=== PATIENT | female | born 1995 | race Caucasian/White ===

== ENCOUNTER 2018-10-11 16:59 | Inpatient (IN) | payer BC ==
[2018-10-11] MEDS ORDERED: Ondansetron 4 MG/2 ML SDV IVPUSH PRN (17:28)
[2018-10-11] MEDS ORDERED: Tranexamic Acid 1,000 MG in Sodium Chloride 0.9% 100 ML IV PRN (17:28)
[2018-10-11] MEDS ORDERED: Lidocaine 1% 50 ML MDV INJECT PRN (17:28)
[2018-10-11] MEDS ORDERED: Water For Irrigation,Sterile 1,000 ML Container IRR PRN (17:28)
[2018-10-11] MEDS ORDERED: Sodium Chloride 0.9% 10 ML Syringe FLUSH PRN (17:28)
[2018-10-11] MEDS ORDERED: Sodium Chloride 0.9% 2.5 ML Syringe FLUSH PRN (17:28)
[2018-10-11] MEDS ORDERED: Carboprost Tromethamine 250 MCG/1 ML Amp IM PRN (17:28)
[2018-10-11] MEDS ORDERED: Methylergonovine 0.2 MG/1 ML Amp IM PRN (17:28)
[2018-10-11] MEDS ORDERED: Misoprostol 200 MCG Tab PO PRN (17:28)
[2018-10-11] MEDS ORDERED: Sodium Chloride 0.9% 10 ML SDV IV PRN (17:28)
[2018-10-11] MEDS ORDERED: Terbutaline 1 MG/ML SDV SUBCUT PRN (17:28)
[2018-10-11] MEDS ORDERED: Oxytocin/0.9 % Sodium Chloride 30 UNIT/500 ML BAG IV SCH ×2 (17:30)
[2018-10-11] MEDS: Lactated Ringers 1,000 ML IV SCH (17:45)
[2018-10-11] MEDS ORDERED: Misoprostol 25 MCG (1/4 of 100 MCG) Tab VAG PRN (18:00)
[2018-10-11] MEDS: Misoprostol 25 MCG (1/4 of 100 MCG) Tab VAG PRN (22:20)
[2018-10-12] MEDS: Butorphanol 1 MG/ML SDV IVPUSH PRN ×3 (00:51→04:50)
[2018-10-12] MEDS: Misoprostol 25 MCG (1/4 of 100 MCG) Tab VAG PRN (02:43)
--- NOTE | 2018-10-12 05:21 | PCM.PREANE ---
Preanesthetic Assessment - Anesthesia/Transfusion/Family Hx Anesthesia History: Prior Anesthesia Without Reaction Family History of Anesthesia Reaction: No Transfusion History: No Prior Transfusion(s) - Review of Systems General: No Symptoms Pulmonary: No Symptoms Cardiovascular: No Symptoms Gastrointestinal: No Symptoms Neurological: No Symptoms Other: Reports: None - Physical Assessment Height: 5 ft 1 in Weight: 73.936 kg ASA Class: 2 Mental Status: Alert & Oriented x3 Airway Class: Mallampati = 2 Dentition: Reports: Normal Dentition Thyro-Mental Finger Breadths: 3 Mouth Opening Finger Breadths: 3 ROM/Head Extension: Full Lungs: Clear to Auscultation, Normal Respiratory Effort Cardiovascular: Regular Rate, Regular Rhythm - Lab Values: Laboratory Last Values WBC 11.82 K/uL (4.0-11.0) H 10/11/18 17:48 RBC 4.48 M/uL (4.30-5.90) 10/11/18 17:48 Hgb 12.9 g/dL (12.0-16.0) 10/11/18 17:48 Hct 39.3 % (36.0-46.0) 10/11/18 17:48 MCV 87.7 fL (80.0-98.0) 10/11/18 17:48 MCH 28.8 pg (27.0-32.0) 10/11/18 17:48 MCHC 32.8 g/dL (31.0-37.0) 10/11/18 17:48 RDW Std Deviation 47.0 fl (28.0-62.0) 10/11/18 17:48 RDW Coeff of Jerry 15 % (11.0-15.0) 10/11/18 17:48 Plt Count 188 K/uL (150-400) 10/11/18 17:48 MPV 12.30 fL (7.40-12.00) H 10/11/18 17:48 Nucleated RBC % 0.0 /100WBC 10/11/18 17:48 Nucleated RBCs # 0 K/uL 10/11/18 17:48 Blood Type A POSITIVE 10/11/18 17:48 Antibody Screen NEGATIVE 10/11/18 17:48 - Allergies Allergies/Adverse Reactions: Allergies Allergy/AdvReac Type Severity Reaction Status Date / Time amoxicillin Allergy Swelling Verified 08/30/18 03:10 - Acknowledgements Anesthesia Type Planned: Epidural Pt an Appropriate Candidate for the Planned Anesthesia: Yes Alternatives and Risks of Anesthesia Discussed w Pt/Guardian: Yes Pt/Guardian Understands and Agrees with Anesthesia Plan: Yes PreAnesthesia Questionnaire - Past Health History Medical/Surgical History: Denies Medical/Surgical History HEENT History: Reports: None Cardiovascular History: Reports: None Respiratory History: Reports: None Gastrointestinal History: Reports: GERD Genitourinary History: Reports: None TENNIS PLAYER History: Reports: : 1 Para: 0 LMP (Approximate): Musculoskeletal History: Reports: None Neurological History: Reports: None Psychiatric History: Reports: None Endocrine/Metabolic History: Reports: None Hematologic History: Reports: None Immunologic History: Reports: None Oncologic (Cancer) History: Reports: None Dermatologic History: Reports: None - Infectious Disease History Infectious Disease History: Reports: None - HOME MEDS Home Medications: Home Meds Ferrous Sulfate [Iron] 325 mg PO DAILY 10/11/18 [History] PNV95/Ferrous Fumarate/FA [ Tablet] 1 each PO DAILY 10/11/18 [History] - CURRENT (IN HOUSE) MEDS Current Meds: Current Medications Butorphanol Tartrate (Stadol) 1 mg IVPUSH Q1H PRN PRN Reason: Pain Last Admin: 10/12/18 04:50 Dose: 1 mg Carboprost Tromethamine (Hemabate Ds) 250 mcg IM ASDIRECTED PRN PRN Reason: Post Hemorrhage Lactated Ringer's (Ringers, Lactated) 1,000 mls @ 150 mls/hr IV ASDIRECTED LUCIA Last Admin: 10/11/18 17:45 Dose: 150 mls/hr Oxytocin/Sodium Chloride (Oxytocin 30 Unit/500 Ml-Ns) 30 unit in 500 mls @ 999 mls/hr IV TITRATE LUCIA Oxytocin/Sodium Chloride (Oxytocin 30 Unit/500 Ml-Ns) 30 unit in 500 mls @ 2 mls/hr IV TITRATE LUCIA; Protocol Tranexamic Acid 1,000 mg/ (Sodium Chloride) 110 mls @ 660 mls/hr IV ONETIME PRN PRN Reason: Bleeding Lidocaine HCl (Xylocaine 1%) 50 ml INJECT ONETIME PRN PRN Reason: Laceration repair Methylergonovine Maleate (Methergine) 0.2 mg IM ASDIRECTED PRN PRN Reason: Post Hemorrhage Misoprostol (Cytotec) 200 mcg PO ONETIME PRN PRN Reason: Post Hemorrhage Misoprostol (Cytotec) 25 mcg VAG ONETIME PRN PRN Reason: Cervical Ripening Last Admin: 10/11/18 18:03 Dose: 25 mcg Misoprostol (Cytotec) 25 mcg VAG Q4H PRN PRN Reason: Cervical Ripening Last Admin: 10/12/18 02:43 Dose: 25 mcg Ondansetron HCl (Zofran) 4 mg IVPUSH Q6H PRN PRN Reason: Nausea/Vomiting Sodium Chloride (Saline Flush) 10 ml FLUSH ASDIRECTED PRN PRN Reason: Keep Vein Open Sodium Chloride (Saline Flush) 2.5 ml FLUSH ASDIRECTED PRN PRN Reason: Keep Vein Open Sodium Chloride (Normal Saline) 10 ml IV ASDIRECTED PRN PRN Reason: IV Use Sterile Water (Sterile Water For Irrigation) 1,000 ml IRR ASDIRECTED PRN PRN Reason: delivery Terbutaline Sulfate (Brethine) 0.25 mg SUBCUT ASDIRECTED PRN PRN Reason: Tacysystole
[2018-10-12] MEDS ORDERED: Oxytocin/0.9 % Sodium Chloride 30 UNIT/500 ML BAG IV SCH (07:15)
[2018-10-12] MEDS ORDERED: Bupivacaine 0.5% 10 ML SDV ONE (10:16)
[2018-10-12] MEDS: Lactated Ringers 1,000 ML IV SCH (12:07)
[2018-10-12] MEDS ORDERED: Ropivacaine HCl/PF 100 ML ONE (13:57)
[2018-10-12] MEDS ORDERED: fentaNYL 100 MCG/2 ML SDV ONE (13:57)
--- NOTE | 2018-10-12 15:03 | PCM.PRNOTE ---
- Free Text/Narrative Note: Anes Procedure NOte Patient reports incomplete analgesia on right side. This has been bolused during the day, and once again at 1415. I bolused with 5 cc pump solution. A new epidural bag was also placed at this time. The new epidural solution is 100 cc of 0.2% ropivicaine with 1 mcg/cc fentanyl added. However, the patient is not satisfied with her analgesia, and I have offered to replace her epidural catheter, and she wishes to proceed. Prio epidural easily removed with ease and complete with tip intact. Sterile prop to lumbar area with chloraprep. Steril fenestrated drape placed. Under sterile technique and local anesthesia, the epidural space was achieved at L2-L3, single attempt with ease. Cath threaded 4 cm wtih ease, and secured at 10 cm at skin. Sterile clear adhesive dressing placed. Test dose at 1447 3cc 1.5% lido with epi negative. Loading dose at 475842 cc 0.25 % bupivicaine plain in slow incrementatl doses, Pump restarted Patient reports excellent analgesia Time with patient [id number] Melo Rodriguez CRNA
[2018-10-12] MEDS ORDERED: Bisacodyl 10 MG Supp RECTAL PRN (21:03)
[2018-10-12] MEDS ORDERED: Ibuprofen 400 MG Tab PO PRN (21:03)
[2018-10-12] MEDS ORDERED: Aluminum Hydroxide/Magnesium Hydroxide/Simethicone Susp 30 ML Cup PO PRN (21:03)
[2018-10-12] MEDS ORDERED: oxyCODONE 5 MG Tab PO PRN (21:03)
[2018-10-12] MEDS ORDERED: Acetaminophen 500 MG Tab PO PRN ×2 (21:03)
--- NOTE | 2018-10-12 21:11 | PCM.OPNOTE ---
- General Post-Op/Procedure Note Date of Surgery/Procedure: 10/12/18 Operative Procedure(s): /2nd MLL repaired Findings: Viable female APGARs 9, 10 weight 3120 gm. Spontaneous delivery intact placenta with 3V cord Pre Op Diagnosis: 41 week IUP. IOL for past due Post-Op Diagnosis: Same Anesthesia Technique: Epidural Primary Surgeon: Pamela Stuart EBL in mLs: 400 Complications: none known Condition: Good Free Text/Narrative:: Dictation [id number]
[2018-10-12] MEDS: Lanolin 100% Cream 7 GM Tube TOP PRN (21:21)
[2018-10-12] MEDS: Ibuprofen 800 MG Tab PO PRN (21:22)
[2018-10-12] MEDS: Witch Hazel Medicated Pads 40/Jar TOP PRN (21:22)
[2018-10-12] MEDS: Benzocaine/Menthol 20%-0.5% Spray 78 GM Cannister TOP PRN (21:23)
--- NOTE | 2018-10-13 01:37 | OR ---
SURGEON: Pamela Stuart M.D. DATE OF PROCEDURE: 10/12/2018 PREOPERATIVE DIAGNOSES: 1. 41 week intrauterine . 2. Induction of labor for past due . POSTOPERATIVE DIAGNOSES: 1. 41 week intrauterine . 2. Induction of labor for past due . PROCEDURE: Spontaneous vaginal delivery, second-degree midline laceration repair. PRIMARY SURGEON: Pamela Stuart M.D. ANESTHESIA: Epidural. ESTIMATED BLOOD LOSS: 400 mL. COMPLICATIONS: None known. FINDINGS: Viable female Apgars 9 at 1 minute, 10 at 5 minutes. Weight of 3120 g. Spontaneous delivery, intact placenta, 3-vessel cord. DISPOSITION: to nursery, mom in LDRP. PROCEDURE DETAILS: Altagracia is a 22-year-old, G1, P0, at 41 weeks' gestational age, who presented on the evening of 10/11/2018 for scheduled induction of labor for past due . She initially underwent Cytotec ripening, responded nicely to this, progressed from 2 cm to 3 cm, 80% effaced, -2 station. She had been transitioned to Pitocin induction. heart tones 140s with variability. She is group B beta strep negative. The following morning, she underwent amniotomy shortly before 8 a.m. and was had clear fluid. Within the next hour with monitoring was not able to be easily follow the contractions, therefore, an IUPC was placed. The patient had received epidural in the real estate office supervisor of 10/12/2018. Shortly afternoon, the patient was found to be 4 to 5 cm, 90% effaced, and -1 station. Throughout the afternoon, she started having increasing discomfort despite her epidural. Ultimately, she underwent replacement of her epidural, became much more comfortable. Shortly after 5 p.m., she was found to be 900% effaced, 0 station. Continued to progress. Shortly after 7 p.m., was found to be complete 100% effaced, +2 station, began pushing efforts, pushed for approximately an hour. At that time was able to push to a +3 station, was called for delivery. Upon my arrival, the patient was placed in modified dorsal lithotomy position, was prepped and draped in the usual aseptic manner. Continued with pushing efforts, was able to push to +5 station, deliver the infant's head atraumatically, spontaneously, followed by anterior shoulder, posterior shoulder, and remaining body without difficulty. The 's oropharynx and nares bulb suctioned. Cord was handed off to her mother with attending nursing staff. After delay, cord was clamped x2 and cut. Cord arterial, cord venous, cord blood sampling obtained. Light pressure was applied. The placenta was delivered spontaneously intact. Vigorous fundal uterine massage was applied while 30 units of Pitocin was delivered in 500 mL IV fluid. Upon inspection of cervix, vaginal sidewalls, and perineum, there was found to be a first-degree right periurethral laceration was repaired using 3-0 Vicryl in continuous running fashion. There was also a second-degree midline laceration was repaired using 3-0 Vicryl in the usual fashion. Hemostasis appeared evident. Uterus is remaining firm. Sponge count, instrument, needle count was correct. The patient will remain in LDRP, infant to [facility]. DILSHAD / FLORI /[id number]
[2018-10-13] MEDS: Ibuprofen 800 MG Tab PO PRN (07:39)
[2018-10-13] MEDS: Docusate Sodium 100 MG Cap PO PRN (07:41)
--- NOTE | 2018-10-13 08:27 | PCM.PNPP ---
- General Info Date of Service: 10/13/18 Functional Status: Reports: Pain Controlled, Tolerating Diet, Ambulating, Urinating - Review of Systems General: Reports: Fatigue. Denies: Fever, Weakness Pulmonary: Denies: Shortness of Breath Cardiovascular: Denies: Chest Pain, Palpitations, Lightheadedness Gastrointestinal: Denies: Abdominal Pain, Nausea, Vomiting Genitourinary: Denies: Flank Pain Musculoskeletal: Reports: No Symptoms Skin: Reports: No Symptoms Neurological: Reports: No Symptoms Psychiatric: Reports: No Symptoms - Patient Data Vital Signs - Most Recent: Last Vital Signs Temp 36.2 C 10/13/18 07:19 Pulse 79 10/13/18 07:19 Resp 17 10/13/18 07:19 BP 104/66 10/13/18 07:19 Pulse Ox 96 10/13/18 07:19 Weight - Most Recent: 73.936 kg Lab Results - Last 24 Hours: Laboratory Results - last 24 hr 10/12/18 10/13/18 Range/Units 20:34 06:15 Hgb 10.8 L (12.0-16.0) g/dL Hct 33.6 L (36.0-46.0) % Cord ABG pH 7.288 (7.18-7.38) Cord ABG Base Excess -7 (-10--2) Cord VBG pH 7.384 (7.25-7.45) Cord VBG Base Excess -6 (-10--2) Med Orders - Current: Current Medications Acetaminophen (Tylenol Extra Strength) 500 mg PO Q4H PRN PRN Reason: Pain Acetaminophen (Tylenol Extra Strength) 1,000 mg PO Q4H PRN PRN Reason: Pain Al Hydroxide/Mg Hydroxide (Mag-Al Plus) 30 ml PO Q8H PRN PRN Reason: Heartburn Benzocaine/Menthol (Dermoplast Pain Relief 20%-0.5% [place]) 78 gm TOP ASDIRECTED PRN PRN Reason: Perineal Comfort Measure Last Admin: 10/12/18 21:23 Dose: 1 applic Bisacodyl (Dulcolax) 10 mg RECTAL ONETIME PRN PRN Reason: Constipation Carboprost Tromethamine (Hemabate Ds) 250 mcg IM ASDIRECTED PRN PRN Reason: Post Hemorrhage Docusate Sodium (Colace) 100 mg PO BID PRN PRN Reason: Constipation Last Admin: 10/13/18 07:41 Dose: 100 mg Emollient Ointment (Lansinoh Hpa) 0 gm TOP ASDIRECTED PRN PRN Reason: Sore Nipples Last Admin: 10/12/18 21:21 Dose: 1 applic Lactated Ringer's (Ringers, Lactated) 1,000 mls @ 150 mls/hr IV ASDIRECTED LUCIA Last Admin: 10/12/18 12:07 Dose: 150 mls/hr Oxytocin/Sodium Chloride (Oxytocin 30 Unit/500 Ml-Ns) 30 unit in 500 mls @ 999 mls/hr IV TITRATE LUCIA Oxytocin/Sodium Chloride (Oxytocin 30 Unit/500 Ml-Ns) 30 unit in 500 mls @ 2 mls/hr IV TITRATE LUCIA; Protocol Tranexamic Acid 1,000 mg/ (Sodium Chloride) 110 mls @ 660 mls/hr IV ONETIME PRN PRN Reason: Bleeding Oxytocin/Sodium Chloride (Oxytocin 30 Unit/500 Ml-Ns) 30 unit in 500 mls @ 2 mls/hr IV TITRATE LUCIA; Protocol Last Titration: 10/12/18 15:03 Dose: 6 munits/min, 6 mls/hr Ibuprofen (Motrin) 400 mg PO Q4H PRN PRN Reason: Pain Ibuprofen (Motrin) 800 mg PO Q6H PRN PRN Reason: Pain Last Admin: 10/13/18 07:39 Dose: 800 mg Methylergonovine Maleate (Methergine) 0.2 mg IM ASDIRECTED PRN PRN Reason: Post Hemorrhage Ondansetron HCl (Zofran) 4 mg IVPUSH Q6H PRN PRN Reason: Nausea/Vomiting Last Admin: 10/12/18 12:22 Dose: 4 mg Oxycodone HCl (Oxycodone) 5 mg PO Q2H PRN PRN Reason: Pain Sodium Chloride (Saline Flush) 10 ml FLUSH ASDIRECTED PRN PRN Reason: Keep Vein Open Sodium Chloride (Saline Flush) 2.5 ml FLUSH ASDIRECTED PRN PRN Reason: Keep Vein Open Sodium Chloride (Normal Saline) 10 ml IV ASDIRECTED PRN PRN Reason: IV Use Sterile Water (Sterile Water For Irrigation) 1,000 ml IRR ASDIRECTED PRN PRN Reason: delivery Last Admin: 10/12/18 21:24 Dose: 1,000 ml Jus Collins (Tucks) 1 pad TOP ASDIRECTED PRN PRN Reason: comfort care Last Admin: 10/12/18 21:22 Dose: 1 applic Discontinued Medications Bupivacaine HCl (Sensorcaine-Mpf 0.5%) Confirm Administered Dose 10 ml .ROUTE .STK-MED ONE Stop: 10/12/18 10:17 Last Admin: 10/13/18 08:25 Dose: Not Given Butorphanol Tartrate (Stadol) 1 mg IVPUSH Q1H PRN PRN Reason: Pain Last Admin: 10/12/18 04:50 Dose: 1 mg Fentanyl (Sublimaze) Confirm Administered Dose 100 mcg .ROUTE .STK-MED ONE Stop: 10/12/18 13:58 Last Admin: 10/13/18 08:25 Dose: Not Given Fentanyl/Bupivacaine HCl (Ienyphlm-Vnygw-Cu 2 Mcg/Ml-0.125%) Confirm Administered Dose 100 mls @ as directed .ROUTE .STK-MED ONE Stop: 10/12/18 05:24 Last Admin: 10/13/18 08:25 Dose: Not Given Ropivacaine (Naropin 0.2%) Confirm Administered Dose 100 mls @ as directed .ROUTE .STK-MED ONE Stop: 10/12/18 13:58 Last Admin: 10/13/18 08:25 Dose: Not Given Lidocaine HCl (Xylocaine 1%) 50 ml INJECT ONETIME PRN PRN Reason: Laceration repair Misoprostol (Cytotec) 200 mcg PO ONETIME PRN PRN Reason: Post Hemorrhage Misoprostol (Cytotec) 25 mcg VAG ONETIME PRN PRN Reason: Cervical Ripening Last Admin: 10/11/18 18:03 Dose: 25 mcg Misoprostol (Cytotec) 25 mcg VAG Q4H PRN PRN Reason: Cervical Ripening Last Admin: 10/12/18 02:43 Dose: 25 mcg Terbutaline Sulfate (Brethine) 0.25 mg SUBCUT ASDIRECTED PRN PRN Reason: Tacysystole - Infant Interaction Support Person: - Recovery Exam Fundal Tone: Firm Fundal Level: At Umbilicus Fundal Placement: Midline Lochia Amount: Scant, Small Lochia Color: Rubra/Red Perineum Description: Other (see below) Other Perinuem Description: 2 degree laceration Episiotomy/Laceration: Approximated Bladder Status: Voiding - Exam General: Alert, Oriented Lungs: Normal Respiratory Effort Cardiovascular: Regular Rate, Regular Rhythm GI/Abdominal Exam: Normal Bowel Sounds, Soft Extremities: Pedal Edema (trace). No: America's Sign Skin: Warm, Dry, Intact Neurological: No New Focal Deficit Psy/Mental Status: Alert, Normal Affect, Normal Mood - Problem List & Annotations (1) Vaginal delivery SNOMED Code(s): 788834717 Code(s): O80 - ENCOUNTER FOR FULL-TERM UNCOMPLICATED DELIVERY Status: Acute Current Visit: Yes - Problem List Review Problem List Initiated/Reviewed/Updated: Yes - My Orders Last 24 Hours: My Active Orders 10/12/18 21:03 Patient Status [ADT] Routine May Shower [RC] ASDIRECTED Up ad Brie [RC] ASDIRECTED Vital Signs [RC] PER UNIT ROUTINE Acetaminophen [Tylenol Extra Strength] 1,000 mg PO Q4H PRN Acetaminophen [Tylenol Extra Strength] 500 mg PO Q4H PRN Alum Hydrox/Mag Hydrox/Simeth [Mag-Al Plus] 30 ml PO Q8H PRN Benzocaine/Menthol [Dermoplast Pain Relief 20%-0.5% [place]] 78 gm TOP ASDIRECTED PRN Bisacodyl [Dulcolax] 10 mg RECTAL ONETIME PRN Docusate Sodium [Colace] 100 mg PO BID PRN Ibuprofen [Motrin] 400 mg PO Q4H PRN Ibuprofen [Motrin] 800 mg PO Q6H PRN Lanolin [Lansinoh HPA] See Dose Instructions TOP ASDIRECTED PRN Witch Karina [Tucks] 1 pad TOP ASDIRECTED PRN oxyCODONE 5 mg PO Q2H PRN Assess Lochia [WOMSER] Per Unit Routine Assess Uterine Involution [WOMSER] Per Unit Routine Peripheral IV Discontinue [OM.PC] Routine 10/12/18 21:04 Ice Therapy [OM.PC] Per Unit Routine Perineal Care [OM.PC] Per Unit Routine Sitz Bath [OM.PC] Per Unit Routine 10/12/18 Dinner Regular Diet [DIET] - Assessment Assessment:: PPD 1 status post /2nd MLL repaired - Plan Plan:: Continue cares. Anticipate discharge in the morning. going well overall.
--- NOTE | 2018-10-13 08:34 | PCM48HPAN ---
Post Anesthesia Note - EVALUATION WITHIN 48HRS OF ANESTHETIC Vital Signs in Normal Range: Yes Patient Participated in Evaluation: Yes Respiratory Function Stable: Yes Airway Patent: Yes Cardiovascular Function Stable: Yes Hydration Status Stable: Yes Pain Control Satisfactory: Yes Nausea and Vomiting Control Satisfactory: Yes Mental Status Recovered: Yes Pulse Rate: 79 SaO2: 96 Resp Rate: 17 Blood Pressure: 104/66
--- NOTE | 2018-10-14 08:36 | PCM.PNPP ---
- General Info Date of Service: 10/14/18 Functional Status: Reports: Pain Controlled, Tolerating Diet, Ambulating, Urinating - Review of Systems General: Reports: Fatigue. Denies: Fever, Weakness Pulmonary: Denies: Shortness of Breath Cardiovascular: Denies: Chest Pain, Palpitations, Lightheadedness Gastrointestinal: Reports: Flatus. Denies: Abdominal Pain, Nausea, Vomiting Genitourinary: Denies: Flank Pain Musculoskeletal: Reports: No Symptoms Skin: Reports: No Symptoms Neurological: Reports: No Symptoms Psychiatric: Reports: No Symptoms - General Info Date of Service: 10/14/18 - Patient Data Vital Signs - Most Recent: Last Vital Signs Temp 36.6 C 10/14/18 07:26 Pulse 70 10/14/18 07:26 Resp 17 10/14/18 07:26 BP 90/52 L 10/14/18 07:26 Pulse Ox 98 10/14/18 07:26 Weight - Most Recent: 73.936 kg Med Orders - Current: Current Medications Acetaminophen (Tylenol Extra Strength) 500 mg PO Q4H PRN PRN Reason: Pain Acetaminophen (Tylenol Extra Strength) 1,000 mg PO Q4H PRN PRN Reason: Pain Al Hydroxide/Mg Hydroxide (Mag-Al Plus) 30 ml PO Q8H PRN PRN Reason: Heartburn Benzocaine/Menthol (Dermoplast Pain Relief 20%-0.5% [place]) 78 gm TOP ASDIRECTED PRN PRN Reason: Perineal Comfort Measure Last Admin: 10/12/18 21:23 Dose: 1 applic Bisacodyl (Dulcolax) 10 mg RECTAL ONETIME PRN PRN Reason: Constipation Carboprost Tromethamine (Hemabate Ds) 250 mcg IM ASDIRECTED PRN PRN Reason: Post Hemorrhage Docusate Sodium (Colace) 100 mg PO BID PRN PRN Reason: Constipation Last Admin: 10/13/18 07:41 Dose: 100 mg Emollient Ointment (Lansinoh Hpa) 0 gm TOP ASDIRECTED PRN PRN Reason: Sore Nipples Last Admin: 10/12/18 21:21 Dose: 1 applic Lactated Ringer's (Ringers, Lactated) 1,000 mls @ 150 mls/hr IV ASDIRECTED LUCIA Last Admin: 10/12/18 12:07 Dose: 150 mls/hr Oxytocin/Sodium Chloride (Oxytocin 30 Unit/500 Ml-Ns) 30 unit in 500 mls @ 999 mls/hr IV TITRATE LUCIA Oxytocin/Sodium Chloride (Oxytocin 30 Unit/500 Ml-Ns) 30 unit in 500 mls @ 2 mls/hr IV TITRATE LUCIA; Protocol Tranexamic Acid 1,000 mg/ (Sodium Chloride) 110 mls @ 660 mls/hr IV ONETIME PRN PRN Reason: Bleeding Oxytocin/Sodium Chloride (Oxytocin 30 Unit/500 Ml-Ns) 30 unit in 500 mls @ 2 mls/hr IV TITRATE LUCIA; Protocol Last Titration: 10/12/18 15:03 Dose: 6 munits/min, 6 mls/hr Ibuprofen (Motrin) 400 mg PO Q4H PRN PRN Reason: Pain Ibuprofen (Motrin) 800 mg PO Q6H PRN PRN Reason: Pain Last Admin: 10/13/18 07:39 Dose: 800 mg Methylergonovine Maleate (Methergine) 0.2 mg IM ASDIRECTED PRN PRN Reason: Post Hemorrhage Ondansetron HCl (Zofran) 4 mg IVPUSH Q6H PRN PRN Reason: Nausea/Vomiting Last Admin: 10/12/18 12:22 Dose: 4 mg Oxycodone HCl (Oxycodone) 5 mg PO Q2H PRN PRN Reason: Pain Sodium Chloride (Saline Flush) 10 ml FLUSH ASDIRECTED PRN PRN Reason: Keep Vein Open Sodium Chloride (Saline Flush) 2.5 ml FLUSH ASDIRECTED PRN PRN Reason: Keep Vein Open Sodium Chloride (Normal Saline) 10 ml IV ASDIRECTED PRN PRN Reason: IV Use Sterile Water (Sterile Water For Irrigation) 1,000 ml IRR ASDIRECTED PRN PRN Reason: delivery Last Admin: 10/12/18 21:24 Dose: 1,000 ml Witch Karina (Tucks) 1 pad TOP ASDIRECTED PRN PRN Reason: comfort care Last Admin: 10/12/18 21:22 Dose: 1 applic Discontinued Medications Bupivacaine HCl (Sensorcaine-Mpf 0.5%) Confirm Administered Dose 10 ml .ROUTE .STK-MED ONE Stop: 10/12/18 10:17 Last Admin: 10/13/18 08:25 Dose: Not Given Butorphanol Tartrate (Stadol) 1 mg IVPUSH Q1H PRN PRN Reason: Pain Last Admin: 10/12/18 04:50 Dose: 1 mg Fentanyl (Sublimaze) Confirm Administered Dose 100 mcg .ROUTE .STK-MED ONE Stop: 10/12/18 13:58 Last Admin: 10/13/18 08:25 Dose: Not Given Fentanyl/Bupivacaine HCl (Rskxowfp-Sqshw-Gb 2 Mcg/Ml-0.125%) Confirm Administered Dose 100 mls @ as directed .ROUTE .STK-MED ONE Stop: 10/12/18 05:24 Last Admin: 10/13/18 08:25 Dose: Not Given Ropivacaine (Naropin 0.2%) Confirm Administered Dose 100 mls @ as directed .ROUTE .STiPierian-MED ONE Stop: 10/12/18 13:58 Last Admin: 10/13/18 08:25 Dose: Not Given Lidocaine HCl (Xylocaine 1%) 50 ml INJECT ONETIME PRN PRN Reason: Laceration repair Misoprostol (Cytotec) 200 mcg PO ONETIME PRN PRN Reason: Post Hemorrhage Misoprostol (Cytotec) 25 mcg VAG ONETIME PRN PRN Reason: Cervical Ripening Last Admin: 10/11/18 18:03 Dose: 25 mcg Misoprostol (Cytotec) 25 mcg VAG Q4H PRN PRN Reason: Cervical Ripening Last Admin: 10/12/18 02:43 Dose: 25 mcg Terbutaline Sulfate (Brethine) 0.25 mg SUBCUT ASDIRECTED PRN PRN Reason: Tacysystole - Interaction Support Person: - Recovery Exam Fundal Tone: Firm Fundal Level: At Umbilicus Fundal Placement: Midline Lochia Amount: Small Lochia Color: Rubra/Red Perineum Description: Intact, Minimal Bruising/Swelling Other Perinuem Description: 2 degree laceration Episiotomy/Laceration: None Bladder Status: Voiding Urinary Elimination: Voided - Exam General: Alert, Oriented Lungs: Normal Respiratory Effort Cardiovascular: Regular Rate, Regular Rhythm GI/Abdominal Exam: Normal Bowel Sounds, Soft, Non-Tender, No Distention Extremities: Pedal Edema (trace). No: America's Sign Skin: Warm, Dry, Intact Neurological: No New Focal Deficit Psy/Mental Status: Alert, Normal Affect, Normal Mood - Problem List & Annotations (1) Vaginal delivery SNOMED Code(s): 642958475 Code(s): O80 - ENCOUNTER FOR FULL-TERM UNCOMPLICATED DELIVERY Status: Acute Current Visit: Yes - Problem List Review Problem List Initiated/Reviewed/Updated: Yes - My Orders Last 24 Hours: My Active Orders 10/14/18 08:34 Ready for Discharge [RC] PER UNIT ROUTINE - Assessment Assessment:: PPD 2 status post /2nd MLL repaired - Plan Plan:: Ready to go home today. support reviewed. Follow up at [facility] 6 weeks. Infection and bleeding warnings reviewed. Discharge instructions reviewed. Discharge to home today.
[2018-10-14] MEDS: Ibuprofen 800 MG Tab PO PRN (11:13)
[2018-10-14] MEDS: Docusate Sodium 100 MG Cap PO PRN (11:13)
[2018-10-14] MEDS: Witch Hazel Medicated Pads 40/Jar TOP PRN (11:14)
[2018-10-14] MEDS: Lanolin 100% Cream 7 GM Tube TOP PRN (11:14)
[2018-10-14] MEDS: Benzocaine/Menthol 20%-0.5% Spray 78 GM Cannister TOP PRN (11:14)
== END 2018-10-14 12:23 | disposition home or self-care (01) | DRG 560 ==
LOC: MW.OBCHECK 16:59 → MW.OB 17:05 → MW.OBCHECK 17:28 → MW.OB 17:28 → OBSVTOIN 10-12 20:34 → MW.OB 10-12 23:29
PROVIDERS: ADMIT Obstetrics & Gynecology; ATTEND Obstetrics & Gynecology
PROC: 10E0XZZ Delivery of Products of Conception, External Approach (ICD-10-PCS; principal; 2018-10-12)
PROC: 0KQM0ZZ Repair Perineum Muscle, Open Approach (ICD-10-PCS; 2018-10-12)
PROC: 3E033VJ Introduction of Other Hormone into Peripheral Vein, Percutaneous Approach (ICD-10-PCS; 2018-10-12)
PROC: 3E0P7VZ Introduction of Hormone into Female Reproductive, Via Natural or Artificial Opening (ICD-10-PCS; 2018-10-12)
PROC: 10H07YZ Insertion of Other Device into Products of Conception, Via Natural or Artificial Opening (ICD-10-PCS; 2018-10-12)
PROC: 3E0R3BZ Introduction of Anesthetic Agent into Spinal Canal, Percutaneous Approach (ICD-10-PCS; 2018-10-12)
PROC: 00HU33Z Insertion of Infusion Device into Spinal Canal, Percutaneous Approach (ICD-10-PCS; 2018-10-12)
PROC: 10907ZC Drainage of Amniotic Fluid, Therapeutic from Products of Conception, Via Natural or Artificial Opening (ICD-10-PCS; 2018-10-12)
DX: O48.0 Post-term pregnancy (principal); O70.1 Second degree perineal laceration during delivery; Z3A.41 41 weeks gestation of pregnancy; Z37.0 Single live birth
CPT/HCPCS: 36415; 51702; 59025; 59409; 82803; 85014; 85018; 85027; 86850; 86900; 86901; A9270-GY; J0595; J2405; J2590; J7120

== ENCOUNTER 2020-10-02 18:06 | Emergency (ER) | payer OTHER ==
[2020-10-02] MEDS ORDERED: diphenhydrAMINE 50 MG/ML SDV IVPUSH ONE (18:19)
[2020-10-02] MEDS ORDERED: Acetaminophen 325 MG/10.15 ML ML PO ONE (18:19)
[2020-10-02] MEDS ORDERED: Metoclopramide 10 MG/2 ML SDV IVPUSH ONE (18:19)
[2020-10-02] MEDS ORDERED: Sodium Chloride 0.9% 10 ML Syringe FLUSH PRN (18:19)
[2020-10-02] MEDS ORDERED: Sodium Chloride 0.9% 2.5 ML Syringe FLUSH PRN (18:19)
[2020-10-02] MEDS ORDERED: Acetaminophen 500 MG Tab PO ONE (18:23)
--- NOTE | 2020-10-02 18:23 | EDM.PDOC ---
<Maicol Kruger - Last Filed: 10/02/20 18:21> ED HPI GENERAL MEDICAL PROBLEM - General Chief Complaint: Neuro Symptoms/Deficits Stated Complaint: NUMBNES IN FACE AND LEFT SIDE Time Seen by Provider: 10/02/20 18:19 - History of Present Illness INITIAL COMMENTS - FREE TEXT/NARRATIVE: History of present illness: [] Patient has a migraine headache she describes as migraine for a week. She has had some paresthesia in the left side of her face for the week. About 2 PM today she got a little more tingling paresthesia in the left upper extremity and left lower extremity. She actually has no motor weakness. Review of systems: As per history of present illness and below otherwise all systems reviewed and negative. Past medical history: As per history of present illness and as reviewed below otherwise noncontributory. Surgical history: As per history of present illness and as reviewed below otherwise noncontributory. Social history: No reported history of drug or alcohol abuse. Family history: As per history of present illness and as reviewed below otherwise noncontributory. Physical exam: Constitutional - well developed, well-nourished and in no acute distress HEENT - normocephalic, no evidence of trauma - external nose and mouth normal - no mass in neck and no JVD - mucosae moist EYES - full EOM, PERRL, no icterus - no evidence of inflammation, injection, or drainage Respiratory - no respiratory distress, equal bilateral expansion, lungs clear to auscultation and no abnormal lung sounds Cardiovascular - Regular Rhythm with S1 and S2 appreciated and no murmur, gallop or rub. GI - abdomen soft without distension or organomegaly - normal bowel sounds - no guard or rebound Musculoskeletal no gross deformity of long bones or joints - no tenderness, swelling or edema Neurologic -my brief customary neurologic exam is normal and the patient does have some paresthesia on the left side but she has sensation to light touch throughout. Alert and oriented times four - CN II-XII grossly intact - motor sensory and coordination symmetrically normal Psychiatric - appropriate mood and affect with normal thought content Hematologic - No petechiae or purpura - mucosa appropriate color and sclera not pale - normal nail bed color and refill Integument - no rash or evidence of trauma - normal turgor Diagnostics: [] Therapeutics: [] Impression: [] Plan: [] Definitive disposition and diagnosis as appropriate pending reevaluation and review of above. - Related Data Allergies Allergy/AdvReac Type Severity Reaction Status Date / Time amoxicillin Allergy Swelling Verified 10/02/20 18:29 metoclopramide [From Reglan] AdvReac Severe Anxiety Verified 10/02/20 19:10 Home Meds: Home Meds . 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 OBGYN: Reports: Endocrine/Metabolic: Reports: Diabetes, type II, Hypothyroidism Oncologic: Reports: Breast, Skin ED ROS GENERAL - Review of Systems Review Of Systems: Comprehensive ROS is negative, except as noted in HPI. ED EXAM, GENERAL - Physical Exam Exam: See Below Free Text/Narrative:: My physical exam is in the HPI Departure - Departure Disposition: Home, Self-Care 01 Clinical Impression: Paresthesia, Anxiety - Discharge Information Instructions: Paresthesia, Supporting Someone With Anxiety, Managing Anxiety, Adult Forms: ED Department Discharge Additional Instructions: You were evaluated today on an emergent basis. At this time all of your work-up was normal. You did have a side effect to the Reglan that we provided you. This should wear off with time given that we gave you Benadryl. I do believe that your symptoms today are likely secondary to anxiety versus panic disorder. As discussed I would like you to follow-up with primary care physician to discuss further options and management of anxiety. In addition as discussed I would like you to do breathing exercises in the interim. If you have any worsening symptoms such as trouble walking, trouble speaking, trouble swallowing I would like you to return to the emergency department. Apps to help with Anxiety: [employer] [facility] [address] [place] [address] [facility] [address] [place] [id number] The patient is informed of any results of their evaluation and diagnostic workup and all questions are answered. They are given discharge instructions and return precautions. The patient is stable for discharge. The patient states they understand and agree with the plan and that they will return if their symptoms get worse or if they have any new concerns. The following information is given to patients seen in the emergency department who are being discharged to home. This information is to outline your options for follow-up care. We provide all patients seen in our emergency department with a follow-up referral. The need for follow-up, as well as the timing and circumstances, are variable depending upon the specifics of your emergency department visit. If you don't have a primary care physician on staff, we will provide you with a referral. We always advise you to contact your personal physician following an emergency department visit to inform them of the circumstance of the visit and for follow-up with them and/or the need for any referrals to a consulting specialist. The emergency department will also refer you to a specialist when appropriate. This referral assures that you have the opportunity for follow-up care with a specialist. All of these measure are taken in an effort to provide you with optimal care, which includes your follow-up. Under all circumstances we always encourage you to contact your private physician who remains a resource for coordinating your care. When calling for follow-up care, please make the office aware that this follow-up is from your recent emergency room visit. If for any reason you are refused follow-up, please contact the [facility] Emergency Department at and asked to speak to the emergency department charge nurse. <Cameron Ruiz - Last Filed: 10/03/20 01:32> ED HPI GENERAL MEDICAL PROBLEM - History of Present Illness INITIAL COMMENTS - FREE TEXT/NARRATIVE: Patient was signed out to me by Dr. Kruger pending labs, CT and reevaluation at 7PM I did attempt to go reevaluate the patient after signout however the patient was taken to CT. Laboratory: CBC is unremarkable. CMP is unremarkable. hCG is negative. Magnes ium is normal. The radiological images were viewed by myself along with reading the report from the radiologist. CT head without contrast does not reveal any acute intracranial abnormality. After CT and labs I did reevaluate the patient. At this time her vitals were normal. I did have a discussion with her regarding her presentation. She states that usually when she gets her anxiety she gets these similar symptoms. She states that she has made an appointment for a primary care physician so that she can be evaluated for anxiety. At this time the patient stated that she was ready to leave as the Reglan had made her more anxious and she is feeling tired because of the Benadryl. On my reevaluation the patient was alert and oriented x4 and had no focal neurological deficits. At this time I did discuss with her that it is important that she follow-up with primary care physician for further evaluation. I did provide her with breathing exercises to complete if she is to have any panic attacks or anxiety. I encouraged her to return to the emergency department if she has any worsening symptoms such as headache, double vision, weakness on one side of her body or other or if she has any concern. She was amenable discharge at this time and had no further questions DISPOSITION: The patient was discharged home in stable condition. The patient will follow up with primary care physician in 3 to 5 days CONDITION: Fair PROCEDURES: None FINAL IMPRESSION(S)/DIAGNOSES: 1. Acute paresthesias likely secondary to anxiety versus panic attack 2. Acute anxiety/panic attack Cameron Ruiz M.D. head Pain Score (Numeric/FACES): 8 ED ROS GENERAL - Review of Systems Review Of Systems: See Below Course - Vital Signs Last Recorded V/S: Last Vital Signs Temp 36.6 C 10/02/20 18:59 Pulse 82 10/02/20 20:14 Resp 17 10/02/20 20:14 BP 111/62 10/02/20 20:14 Pulse Ox 97 10/02/20 20:14 - Orders/Labs/Meds Orders: Active Orders 24 hr Category Date Time Status Saline Lock Insert [OM.PC] Stat Oth 10/02/20 18:19 Ordered Labs: Laboratory Tests 10/02/20 10/02/20 10/02/20 Range/Units 18:20 18:20 18:20 WBC 7.35 (4.0-11.0) K/uL RBC 4.48 (4.30-5.90) M/uL Hgb 12.9 (12.0-16.0) g/dL Hct 38.8 (36.0-46.0) % MCV 86.6 (80.0-98.0) fL MCH 28.8 (27.0-32.0) pg MCHC 33.2 (31.0-37.0) g/dL RDW Std Deviation 44.9 (28.0-62.0) fl RDW Coeff of Jerry 14 (11.0-15.0) % Plt Count 236 (150-400) K/uL MPV 11.10 (7.40-12.00) fL Neut % (Auto) 44.9 L (48.0-80.0) % Lymph % (Auto) 46.8 H (16.0-40.0) % [place] % (Auto) 6.9 (0.0-15.0) % Eos % (Auto) 1.0 (0.0-7.0) % Baso % (Auto) 0.4 (0.0-1.5) % Neut # (Auto) 3.3 (1.4-5.7) K/uL Lymph # (Auto) 3.4 H (0.6-2.4) K/uL [place] # (Auto) 0.5 (0.0-0.8) K/uL Eos # (Auto) 0.1 (0.0-0.7) K/uL Baso # (Auto) 0.0 (0.0-0.1) K/uL Nucleated RBC % 0.0 /100WBC Nucleated RBCs # 0 K/uL Sodium 143 (136-145) mmol/L Potassium 3.6 (3.5-5.1) mmol/L Chloride 106 (98-107) mmol/L Carbon Dioxide 27.6 (21.0-32.0) mmol/L BUN 13 (7.0-18.0) mg/dL Creatinine 0.6 (0.6-1.0) mg/dL Est Cr Clr Drug Dosing 107.22 mL/min Estimated GFR (MDRD) > 60.0 ml/min Glucose 93 (74-106) mg/dL Calcium 8.7 (8.5-10.1) mg/dL Magnesium 1.9 (1.8-2.4) mg/dL Total Bilirubin 0.2 (0.2-1.0) mg/dL AST 15 (15-37) IU/L ALT 17 (14-63) IU/L Alkaline Phosphatase 61 (46-116) U/L Total Protein 7.6 (6.4-8.2) g/dL Albumin 3.8 (3.4-5.0) g/dL Globulin 3.8 (2.6-4.0) g/dL Albumin/Globulin Ratio 1.0 (0.9-1.6) HCG, Qual NEGATIVE (NEG) Meds: Medications Discontinued Medications Generic Name Dose Route Start Last Admin Trade Name Freq PRN Reason Stop Dose Admin Acetaminophen 1,000 mg 10/02/20 18:19 10/02/20 18:23 Acetaminophen 325 Mg/10.15 Ml Ml PO 10/02/20 18:20 Not Given ONETIME ONE Acetaminophen 1,000 mg 10/02/20 18:23 10/02/20 18:29 Acetaminophen 500 Mg Tab PO 10/02/20 18:24 1,000 mg ONETIME ONE Administration Dexamethasone 10 mg 10/02/20 19:24 10/02/20 19:58 Dexamethasone 10 Mg/Ml Sdv IVPUSH 10/02/20 19:25 Not Given ONETIME ONE Diphenhydramine HCl 50 mg 10/02/20 18:19 10/02/20 18:29 Diphenhydramine 50 Mg/Ml Sdv IVPUSH 10/02/20 18:20 50 mg ONETIME ONE Administration Lactated Ringer's 1,000 mls @ 999 mls/hr 10/02/20 18:27 10/02/20 18:29 Ringers, Lactated IV 10/02/20 19:27 999 mls/hr .BOLUS ONE Administration Ketorolac Tromethamine 15 mg 10/02/20 19:24 10/02/20 19:58 Ketorolac 15 Mg/Ml Sdv IM 10/02/20 19:25 Not Given ONETIME ONE Metoclopramide HCl 10 mg 10/02/20 18:19 10/02/20 18:28 Metoclopramide 10 Mg/2 Ml Sdv IVPUSH 10/02/20 18:20 10 mg ONETIME ONE Administration Sodium Chloride 10 ml 10/02/20 18:19 Sodium Chloride 0.9% 10 Ml Syringe FLUSH ASDIRECTED PRN Keep Vein Open Sodium Chloride 2.5 ml 10/02/20 18:19 Sodium Chloride 0.9% 2.5 Ml Syringe FLUSH ASDIRECTED PRN Keep Vein Open Departure - Departure Time of Disposition: 20:03 Condition: Fair - Discharge Information *PRESCRIPTION DRUG MONITORING PROGRAM REVIEWED*: No *COPY OF PRESCRIPTION DRUG MONITORING REPORT IN PATIENT JACOB: No Sepsis Event Note (ED) - Focused Exam Vital Signs: Vital Signs Temp Temp Pulse Resp BP Pulse Ox 10/02/20 20:14 82 17 111/62 97 10/02/20 18:59 36.6 C 10/02/20 18:39 135 H 20 106/65 98 10/02/20 18:25 36.8 C 92 18 123/77 99
[2020-10-02] MEDS ORDERED: Lactated Ringers 1,000 ML IV ONE (18:27)
[2020-10-02 18:59] LABS: BLOOD UREA NITROGEN,BUN 13 mg/dL (7.0-18.0); CARBON DIOXIDE,CO2 27.6 mmol/L (21.0-32.0); CHLORIDE,CL 106 mmol/L (98-107); GLUCOSE RANDOM 93 mg/dL (74-106); POTASSIUM,K 3.6 mmol/L (3.5-5.1); SODIUM,NA 143 mmol/L (136-145)
--- NOTE | 2020-10-02 19:22 | CT ---
INDICATION: Left-sided paresthesias with headache x2 weeks TECHNIQUE: CT head without contrast. COMPARISON: None FINDINGS: CSF spaces: Within normal limits for age. Brain parenchyma: The ahll-white differentiation is normal. No sign of mass, hemorrhage, or midline shift. Skull base and calvarium: The visualized paranasal sinuses and mastoid air cells demonstrate no acute or significant findings. The visualized orbits are grossly unremarkable. No skull fractures. IMPRESSION: Unremarkable noncontrast head CT. Please note that all CT scans at this facility use dose modulation, iterative reconstruction, and/or weight-based dosing when appropriate to reduce radiation dose to as low as reasonably achievable. Dictated by Gilberto Bazan MD @ 10/02/2020 7:20:[address] Gilberto Bazan @ Oct 02 2020 7:20PM
[2020-10-02] MEDS ORDERED: Dexamethasone 10 MG/ML SDV IVPUSH ONE (19:24)
[2020-10-02] MEDS ORDERED: Ketorolac 15 MG/ML SDV IM ONE (19:24)
== END 2020-10-02 20:15 | disposition home or self-care (01) ==
LOC: MW.ED 18:06
DX: R20.2 Paresthesia of skin (principal); F41.9 Anxiety disorder, unspecified; Z88.0 Allergy status to penicillin; Z88.8 Allergy status to other drugs, medicaments and biological substances
CPT/HCPCS: 36415; 70450; 80053; 83735; 84703; 85025; 96374; 96375; 99284; A9270; J1200; J2765; J7120

== ENCOUNTER 2021-08-24 06:46 | Inpatient (IN) | payer OTHER ==
[2021-08-24] MEDS ORDERED: Butorphanol 1 MG/ML SDV IVPUSH PRN (07:05)
[2021-08-24] MEDS ORDERED: Misoprostol 200 MCG Tab PO PRN (07:05)
[2021-08-24] MEDS ORDERED: Methylergonovine 0.2 MG/1 ML Amp IM PRN ×2 (07:05→22:58)
[2021-08-24] MEDS ORDERED: Tranexamic Acid 1,000 MG in Sodium Chloride 0.9% 100 ML IV PRN ×2 (07:05→22:58)
[2021-08-24] MEDS ORDERED: Sodium Chloride 0.9% 2.5 ML Syringe FLUSH PRN (07:05)
[2021-08-24] MEDS ORDERED: Water For Irrigation,Sterile 1,000 ML Container IRR PRN (07:05)
[2021-08-24] MEDS ORDERED: Carboprost Tromethamine 250 MCG/1 ML Amp IM PRN (07:05)
[2021-08-24] MEDS ORDERED: Sodium Chloride 0.9% 20 ML SDV IV PRN (07:05)
[2021-08-24] MEDS ORDERED: Lidocaine 1% 50 ML MDV INJECT PRN (07:05)
[2021-08-24] MEDS ORDERED: Sodium Chloride 0.9% 10 ML Syringe FLUSH PRN (07:05)
[2021-08-24] MEDS ORDERED: Oxytocin/0.9 % Sodium Chloride 30 UNIT/500 ML BAG IV SCH ×2 (07:15→16:00)
[2021-08-24] MEDS: Lactated Ringers 1,000 ML IV SCH ×3 (07:26→12:53)
[2021-08-24] MEDS ORDERED: Ropivacaine in NACL,ISO-OSM/PF 400 ML ONE (07:44)
[2021-08-24] MEDS ORDERED: ePHEDrine 50 MG/ML SDV IVPUSH PRN ×2 (08:08)
[2021-08-24] MEDS ORDERED: Ropivacaine in NACL,ISO-OSM/PF 800 MG in Premix Bag 1 BAG EPIDUR SCH ×2 (08:15)
[2021-08-24] MEDS ORDERED: Terbutaline 1 MG/ML SDV SUBCUT PRN (15:49)
[2021-08-24] MEDS ORDERED: fentaNYL 100 MCG/2 ML SDV ONE (18:49)
[2021-08-24] MEDS ORDERED: Lidocaine 2% with EPINEPHrine 1:200,000 20 ML SDV ONE (18:50)
[2021-08-24] MEDS ORDERED: Vancomycin 1.5 GM in Sodium Chloride 0.9% 500 ML IV ONE (20:45)
[2021-08-24] MEDS ORDERED: Benzocaine/Menthol 20%-0.5% Spray 78 GM Cannister TOP PRN (22:58)
[2021-08-24] MEDS ORDERED: Witch Hazel Medicated Pads 40/Jar TOP PRN (22:58)
[2021-08-24] MEDS ORDERED: Bisacodyl 10 MG Supp RECTAL PRN (22:58)
[2021-08-24] MEDS ORDERED: Ibuprofen 800 MG Tab PO PRN (22:58)
[2021-08-24] MEDS ORDERED: Docusate Sodium 100 MG Cap PO PRN (22:58)
[2021-08-24] MEDS ORDERED: Acetaminophen 500 MG Tab PO PRN ×2 (22:58)
[2021-08-24] MEDS ORDERED: Lanolin 100% Cream 7 GM Tube TOP PRN (22:58)
[2021-08-24] MEDS ORDERED: Ibuprofen 400 MG Tab PO PRN (22:58)
== END 2021-08-26 13:24 | disposition home or self-care (01) | DRG 807 ==
LOC: MW.OBCHECK 06:46 → MW.OB 06:48 → MW.OBCHECK 07:05 → MW.OB 07:05 → OBSVTOIN 22:18 → MW.OB 08-25 03:19
PROVIDERS: ADMIT Obstetrics & Gynecology; ATTEND Obstetrics & Gynecology
PROC: 10E0XZZ Delivery of Products of Conception, External Approach (ICD-10-PCS; principal; 2021-08-24)
PROC: 0KQM0ZZ Repair Perineum Muscle, Open Approach (ICD-10-PCS; 2021-08-24)
PROC: 10907ZC Drainage of Amniotic Fluid, Therapeutic from Products of Conception, Via Natural or Artificial Opening (ICD-10-PCS; 2021-08-24)
PROC: 3E0R3BZ Introduction of Anesthetic Agent into Spinal Canal, Percutaneous Approach (ICD-10-PCS; 2021-08-24)
PROC: 00HU33Z Insertion of Infusion Device into Spinal Canal, Percutaneous Approach (ICD-10-PCS; 2021-08-24)
DX: O48.0 Post-term pregnancy (principal); Z37.0 Single live birth; Z3A.40 40 weeks gestation of pregnancy; Z86.16 Personal history of COVID-19; Z88.0 Allergy status to penicillin; O99.824 Streptococcus B carrier state complicating childbirth; O70.1 Second degree perineal laceration during delivery; Z20.822 Contact with and (suspected) exposure to COVID-19
CPT/HCPCS: 01967; 36415; 51702; 59025; 59409; 82803; 85014; 85018; 85027; 86592; 86850; 86900; 86901; A9270-GY; J2001; J2370; J2590; J3370; J7040; J7050; J7120; U0002